=== PATIENT | female | born 1970 | race American Indian/Alaskan Native ===

== ENCOUNTER 2018-02-04 19:20 | Emergency (ER) | payer SELFPAY ==
[2018-02-04 19:44] VITALS: BP 123/74; PULSE 77; RESP 18; TEMP 98.1; O2SAT 100
--- NOTE | 2018-02-04 20:07 | C.PDOC ---
History Of Present Illness 47 y/o female with no significant PMHx presents to the ED complaining of heaviness to left side of her face since yesterday. Also reports her left eye seems irritated, with increased tearing, and is difficult to close. She states her tongue feels uncoordinated and food is tasting differently on the left side of the mouth. Denies any motor deficits of upper or lower extremities, ataxia, headache, visual changes, or paresthesias. Patient states she did have a recent URI. No fever or chills. Time Seen by Provider: 02/04/18 19:58 Chief Complaint (Nursing): Weakness/Neurological Deficit History Per: Patient History/Exam Limitations: no limitations Onset/Duration Of Symptoms: Days (x2) Current Symptoms Are (Timing): Still Present Past Medical History Reviewed: Historical Data, Nursing Documentation, Vital Signs Vital Signs: Last Vital Signs Temp 98.1 F 02/04/18 19:38 Pulse 77 02/04/18 19:38 Resp 18 02/04/18 19:38 BP 123/74 02/04/18 19:38 Pulse Ox 100 02/04/18 20:21 - Medical History PMH: Asthma Denies: Chronic Kidney Disease Surgical History: No Surg Hx Family History: States: No Known Family Hx - Social History Hx Alcohol Use: Yes Hx Substance Use: No - Immunization History Hx Tetanus Toxoid Vaccination: No Hx Influenza Vaccination: No Hx Pneumococcal Vaccination: No Review Of Systems Except As Marked, All Systems Reviewed And Found Negative. Constitutional: Negative for: Fever, Chills Eyes: Positive for: Other (difficulty closing left eye). Negative for: Vision Change ENT: Positive for: Other (tongue incoordination) Neurological: Positive for: Numbness (left sided facial heaviness and eye irritation). Negative for: Weakness (of upper or lower extremities), Change in Speech, Confusion, Headache, Dizziness, Other (Ataxia) Physical Exam - Physical Exam Appears: Non-toxic, No Acute Distress Skin: Warm, Dry, No Rash Head: Atraumatic, Normacephalic, Other (Decreased nasolabial fold on the left) Eye(s): bilateral: PERRL, EOMI Ear(s): Bilateral: Normal Nose: Normal Oral Mucosa: Moist Neck: Normal ROM, Supple Chest: Symmetrical Cardiovascular: Rhythm Regular, No Murmur Respiratory: Normal Breath Sounds, No Rales, No Rhonchi, No Wheezing Gastrointestinal/Abdominal: Soft, No Tenderness, No Distention Extremity: Normal ROM, No Calf Tenderness, No Deformity, No Swelling Pulses: Left Dorsalis Pedis: Normal, Right Dorsalis Pedis: Normal Neurological/Psych: Oriented x3, Normal Speech (with no slurring), Normal Motor (Motor strength is 5/5 throughout, no pronator drift), Other (Clear 7th nerve palsy, unable to furrow left brow and tightly shut left eye) Gait: Steady ED Course And Treatment O2 Sat by Pulse Oximetry: 100 (RA) Pulse Ox Interpretation: Normal Medical Decision Making Medical Decision Making: 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 Will d/c home with prednisone and famciclovir prescriptions. Disposition - Disposition Referrals: [facility] at [facility] [Outside] Disposition: HOME/ ROUTINE Disposition Time: 20:08 Condition: GOOD Additional Instructions: Patch to left eye if irritation persists Prescriptions: Famciclovir 500 mg PO TID #30 tablet predniSONE [predniSONE Tab] 60 mg PO DAILY #30 tab Instructions: Akhtar's Palsy Forms: [employer] (Slovak), Work Excuse - Clinical Impression Clinical Impression: Akhtar's palsy - Scribe Statement The provider has reviewed the documentation as recorded by the Scribe (Beatris Gomez) Provider Attestation: All medical record entries made by the Scribe were at my direction and personally dictated by me. I have reviewed the chart and agree that the record accurately reflects my personal performance of the history, physical exam, medical decision making, and the department course for this patient. I have also personally directed, reviewed, and agree with the discharge instructions and disposition.
== END 2018-02-04 20:39 | disposition home or self-care (01) ==
LOC: C.ER 19:20
DX: G51.0 Bell's palsy (principal)

== ENCOUNTER 2018-02-27 09:25 | Observation (INO) | payer OTHER ==
[2018-02-27 09:50] VITALS: BMI 24.7
[2018-02-27 12:58] LABS: HCG,QUALITATIVE URINE NEGATIVE (NEGATIVE)
[2018-02-27 12:59] LABS: SQUAMOUS EPITHIAL 4 /hpf (0-5); URINE BILIRUBIN NEGATIVE (NEGATIVE); URINE BLOOD NEGATIVE (NEGATIVE); URINE CLARITY Hazy (Clear); URINE COLOR Yellow (YELLOW); URINE GLUCOSE (UA) NORMAL (Normal); URINE LEUKOCYTE ESTERASE NEG Leu/uL (Negative); URINE PROTEIN NEGATIVE (NEGATIVE); URINE UROBILINOGEN NORMAL mg/dL (0.2-1.0)
[2018-02-27 13:30] LABS: BARBITURATES, UR NEGATIVE (NEGATIVE); BENZODIAZEPINES, UR NEGATIVE (NEGATIVE); OPIATES, UR NEGATIVE (NEGATIVE); PHENCYCLIDINE, UR NEGATIVE (NEGATIVE)
[2018-02-27] MEDS ORDERED: Sodium Chloride 0.9% 1,000 ML IV ONE (13:53)
[2018-02-27 14:01] LABS: BASO % 0.3 % (0.0-2.0); EOS # 0.2 K/uL (0.0-0.7); EOS % 1.2 % (0.0-4.0); HEMOGLOBIN 8.4 g/dL (11.0-16.0); LYMPH # 0.7 K/uL (1.0-4.3); MEAN CELL VOLUME 58.2 fL (81.0-99.0); MEAN CORPUSCULAR HEMOGLOBIN 17.9 pg (27.0-31.0); MEAN CORPUSCULAR HGB CONC 30.8 g/dL (33.0-37.0); MEAN PLATELET VOLUME 6.5 fL (7.2-11.7); MONO # 0.6 K/uL (0.0-0.8); MONO % 4.8 % (0.0-10.0); NEUT # 11.5 K/uL (1.8-7.0); NEUT % 88.7 % (50.0-75.0); RBC 4.69 Mil/uL (3.80-5.20); RED CELL DISTRIBUTION WIDTH 27.9 % (11.5-14.5); WHITE BLOOD COUNT 12.9 K/uL (4.8-10.8)
[2018-02-27 14:07] LABS: PLATELET COUNT 1210 K/uL (130-400)
[2018-02-27 14:14] LABS: ALB/GLOB RATIO 1.1 (1.0-2.1); ALBUMIN 3.7 g/dL (3.5-5.0); ALT/SGPT 17 U/L (9-52); AST/SGOT 19 U/L (14-36); BLOOD UREA NITROGEN 14 mg/dL (7-17); CALCIUM 8.8 mg/dl (8.6-10.4); GFR AFRICAN-AMERICAN > 60; GFR NON-AFRICAN AMERICAN > 60
[2018-02-27 14:28] LABS: INR 1.4; PROTHROMBIN TIME 15.3 SECONDS (9.7-12.2)
[2018-02-27 14:44] LABS: ANISOCYTOSIS MODERATE; EOSINOPHIL 3 % (0-4); HYPOCHROMIC MODERATE; LYMPHOCYTE 5 % (20-40); MONOCYTE 4 % (0-10); NEUTROPHIL 88 % (50-75); PLATELET ESTIMATE MARKEDLY INCREASED (NORMAL); TOTAL CELLS COUNTED 100
[2018-02-27 14:46] LABS: LARGE PLATELETS PRESENT; OVALOCYTES SLIGHT
[2018-02-27 14:47] LABS: POLYCHROMIC SLIGHT
--- NOTE | 2018-02-27 15:16 | C.PDOC ---
History Of Present Illness 47 year old female presents to the ED for evaluation of generalized body pain which began at around 0200 today. Patient describes a full body pain that is primarily around her bilateral lower extremities. She tried going to work today , but was unable to because of the pain. In ED, patient was afebrile via oral temperature but showed a Tmax of 101.3 via rectal temperature. She denies chills , headache, chest pain, shortness of breath, neck pain, back pain, nausea, vomiting. Time Seen by Provider: 02/27/18 10:11 Chief Complaint (Nursing): GI Problem History Per: Patient History/Exam Limitations: no limitations Onset/Duration Of Symptoms: Hrs Current Symptoms Are (Timing): Still Present Additional History Per: Patient Past Medical History Reviewed: Historical Data, Nursing Documentation, Vital Signs Vital Signs: Last Vital Signs Temp 100 F H 02/27/18 15:26 Pulse 86 02/27/18 15:26 Resp 18 02/27/18 15:26 BP 136/75 02/27/18 15:26 Pulse Ox 100 02/27/18 16:34 - Medical History PMH: Asthma Surgical History: No Surg Hx Family History: States: Unknown Family Hx - Social History Hx Alcohol Use: Yes Hx Substance Use: No - Immunization History Hx Tetanus Toxoid Vaccination: No Hx Influenza Vaccination: No Hx Pneumococcal Vaccination: No Review Of Systems Constitutional: Positive for: Fever. Negative for: Chills Cardiovascular: Negative for: Chest Pain Respiratory: Negative for: Shortness of Breath Gastrointestinal: Negative for: Nausea, Vomiting Musculoskeletal: Positive for: Leg Pain (bilaterally ), Other (generalized full body pain ). Negative for: Neck Pain, Back Pain Neurological: Negative for: Headache Physical Exam - Physical Exam Appears: Non-toxic, No Acute Distress Skin: Normal Color, Warm, Dry, No Rash, No Other (erythema to bilateral lower extremities ) Head: Atraumatic, Normacephalic Eye(s): bilateral: Normal Inspection Ear(s): Bilateral: Normal Nose: Normal, No Discharge Oral Mucosa: Moist Throat: Normal, No Erythema, No Exudate Neck: Supple Chest: Symmetrical, No Deformity, No Tenderness Cardiovascular: Rhythm Regular, No Murmur Respiratory: Normal Breath Sounds, No Rales, No Rhonchi, No Wheezing Gastrointestinal/Abdominal: Soft, No Tenderness, No Guarding, No Rebound Extremity: Normal ROM, Tenderness (to bilateral lower extremities on palpation ) , Capillary Refill (less than 2 seconds ), No Deformity, No Swelling Pulses: Left Dorsalis Pedis: Normal, Right Dorsalis Pedis: Normal Neurological/Psych: Oriented x3, Normal Speech, Normal Cognition ED Course And Treatment - Laboratory Results Result Diagrams: 02/27/18 15:22 02/27/18 13:56 O2 Sat by Pulse Oximetry: 100 (on RA) Pulse Ox Interpretation: Normal - Other Rad CXR X-Ray: Interpreted by Me, Viewed By Me, Read By Radiologist Interpretation: HISTORY: Fever, pain. COMPARISON: No prior. FINDINGS: LUNGS : No active pulmonary disease. PLEURA: No significant pleural effusion identified, no pneumothorax apparent. CARDIOVASCULAR: Normal. OSSEOUS STRUCTURES: No significant abnormalities. VISUALIZED UPPER ABDOMEN: Normal. OTHER FINDINGS: None. IMPRESSION: No active disease. Medical Decision Making Medical Decision Making: Impression: 47 year old female with generalized body pain Plan: * bloodwork * urinalysis * CXR * Motrin PO * Tamiflu PO * Tylenol PO * IV Fluids * reassess and disposition Progress: Bloodwork, urinalysis, CXR ordered and reviewed. Motrin PO, Tamiflu PO, Tylenol PO, and IV Fluids administered. Lab results show elevated platelet count. Patient remains afebrile in the ED. Case discussed with Dr. James, who accept the patient for admission. Disposition Discussed With : Maxime James Counseled Patient/Family Regarding: Studies Performed - Disposition Disposition: HOSPITALIZED Disposition Time: 15:15 Condition: STABLE - Clinical Impression Clinical Impression: Thrombocytosis, Fever - Scribe Statement The provider has reviewed the documentation as recorded by the Scribe (Mckenna Reagan) Provider Attestation: All medical record entries made by the Scribe were at my direction and personally dictated by me. I have reviewed the chart and agree that the record accurately reflects my personal performance of the history, physical exam, medical decision making, and the department course for this patient. I have also personally directed, reviewed, and agree with the discharge instructions and disposition. Decision To Admit - Pt Status Changed To: Hospital Disposition Of: Observation - . Bed Request Type: Regular Patient Diagnosis: Thrombocytosis, Fever
[2018-02-27 15:30] LABS: EOS # 0.1 K/uL (0.0-0.7); EOS % 0.9 % (0.0-4.0); HEMOGLOBIN 8.1 g/dL (11.0-16.0); LYMPH % 7.7 % (20.0-40.0); MEAN CELL VOLUME 58.5 fL (81.0-99.0); MEAN CORPUSCULAR HEMOGLOBIN 17.9 pg (27.0-31.0); MEAN CORPUSCULAR HGB CONC 30.6 g/dL (33.0-37.0); MEAN PLATELET VOLUME 6.6 fL (7.2-11.7); MONO # 0.5 K/uL (0.0-0.8); MONO % 4.3 % (0.0-10.0); NEUT # 11.2 K/uL (1.8-7.0); NEUT % 87.1 % (50.0-75.0); NRBC % 0.1 % (0.0-2.0); RBC 4.53 Mil/uL (3.80-5.20); RED CELL DISTRIBUTION WIDTH 27.9 % (11.5-14.5); WHITE BLOOD COUNT 12.8 K/uL (4.8-10.8)
--- NOTE | 2018-02-27 15:55 | RAD ---
HISTORY: Fever, pain COMPARISON: No prior. FINDINGS: LUNGS: No active pulmonary disease. PLEURA: No significant pleural effusion identified, no pneumothorax apparent. CARDIOVASCULAR: Normal. OSSEOUS STRUCTURES: No significant abnormalities. VISUALIZED UPPER ABDOMEN: Normal. OTHER FINDINGS: None. IMPRESSION: No active disease.
[2018-02-27] MEDS ORDERED: Enoxaparin 80 mg Syringe SC ONE (18:00)
[2018-02-27] MEDS: Sodium Chloride 0.9% 1,000 ML IV SCH (18:56)
[2018-02-27 22:43] LABS: SQUAMOUS EPITHIAL 3 /hpf (0-5); URINE BACTERIA RARE (<OCC); URINE BILIRUBIN NEGATIVE (NEGATIVE); URINE BLOOD NEGATIVE (NEGATIVE); URINE CLARITY Clear (Clear); URINE COLOR Straw (YELLOW); URINE GLUCOSE (UA) NORMAL (Normal); URINE LEUKOCYTE ESTERASE NEG Leu/uL (Negative); URINE PROTEIN NEGATIVE (NEGATIVE); URINE UROBILINOGEN NORMAL mg/dL (0.2-1.0)
[2018-02-27 23:50] VITALS: RESP 20
[2018-02-27] MEDS: Azithromycin 500 MG in Sodium Chloride 0.9% 250 ML IVPB SCH (23:54)
[2018-02-28 07:17] LABS: HEMOGLOBIN 8.4 g/dL (11.0-16.0); MEAN CELL VOLUME 58.1 fL (81.0-99.0); MEAN CORPUSCULAR HEMOGLOBIN 18.4 pg (27.0-31.0); MEAN CORPUSCULAR HGB CONC 31.7 g/dL (33.0-37.0); MEAN PLATELET VOLUME 8.6 fL (7.2-11.7); RBC 4.55 Mil/uL (3.80-5.20); RED CELL DISTRIBUTION WIDTH 28.8 % (11.5-14.5); WHITE BLOOD COUNT 7.1 K/uL (4.8-10.8)
[2018-02-28 07:30] LABS: IRON 13 ug/dL (37-170)
[2018-02-28 07:38] LABS: % IRON SATURATION 3 (20-55); TOTAL IRON BINDING CAPACITY 433 ug/dL (250-450)
[2018-02-28 07:41] LABS: BLOOD UREA NITROGEN 7 mg/dL (7-17); CALCIUM 8.2 mg/dl (8.6-10.4); GFR AFRICAN-AMERICAN > 60; GFR NON-AFRICAN AMERICAN > 60
[2018-02-28 08:34] LABS: FOLATE 11.2 ng/mL
--- NOTE | 2018-02-28 09:04 | CP.PCM.HP ---
History of Present Illness - History of Present Illness History of Present Illness: CC: GENERALIZED WEAKNESS, DIZZINESS, DIFFICULTY WALKING, numbness in b/l LE HPI: 47 year old female well known to me with h/o uterine fibriuods, menorrhagia nd chronic anemia, not seeing any gyneacologist, otherwise she is healthy presents to the ED for evaluation of generalized body pain which began at around 0200 today. Patient describes a full body pain that is primarily around her bilateral lower extremities. She tried going to work today, but was unable to because of the pain. In ED, patient was afebrile via oral temperature but showed a Tmax of 101.3 via rectal temperature. She denies chills, headache, chest pain, shortness of breath, neck pain, back pain, nausea, vomiting. Present on Admission - Present on Admission Any Indicators Present on Admission: Yes Review of Systems - Review of Systems Systems not reviewed;Unavailable: Acuity of Condition - Constitutional Constitutional: Fatigue, Lethargy, Malaise, Weakness - EENT Eyes: absent: As Per HPI, Blind Spots, Blurred Vision, Change in Vision, Decreased Night Vision, Diplopia, Discharge, Dry Eye, Exophthalmos, Floaters, Irritation, Itchy Eyes, Loss of Peripheral Vision, Pain, Photophobia, Requires Corrective Lenses, Sees Flashes, Spots in Vision, Tunnel Vision, Other Visual Disturbances, Loss of Vision, Other Nose/Mouth/Throat: absent: As Per HPI, Epistaxis, Nasal Congestion, Nasal Discharge, Nasal Obstruction, Nasal Trauma, Nose Pain, Post Nasal Drip, Sinus Pain, Sinus Pressure, Bleeding Gums, Change in Voice, Dental Pain, Dry Mouth, Dysphagia, Halitosis, Hoarsness, Lip Swelling, Mouth Lesions, Mouth Pain, Odynophagia, Sore Throat, Throat Swelling, Tongue Swelling, Facial Pain, Neck Pain, Neck Mass, Other - Breasts Breasts: absent: As Per HPI, Change in Shape, Mass, Pain, Nipple Discharge, Nipple Inversion, Skin Changes, Swelling, Other - Cardiovascular Cardiovascular: absent: As Per HPI, Acrocyanosis, Chest Pain, Chest Pain at Rest , Chest Pain with Activity, Claudication, Diaphoresis, Dyspnea, Dyspnea on Exertion, Edema, Irregular Heart Rhythm, Pain Radiating to Arm/Neck/Jaw, Leg Edema, Leg Ulcers, Lightheadedness, Orthopnea, Palpitations, Paroxysmal Nocturnal Dyspnea, Pedal Edema, Radiating Pain, Rapid Heart Rate, Slow Heart Rate, Syncope, Other - Respiratory Respiratory: absent: As Per HPI, Cough, Dyspnea, Hemoptysis, Dyspnea on Exertion , Wheezing, Snoring, Stridor, Pain on Inspiration, Chest Congestion, Excessive Mucous Production, Change in Mucous Color, Pain with Coughing, Other - Gastrointestinal Gastrointestinal: Abdominal Pain, Bloating - Reproductive: Female Reproductive:Female: Abnormal Vaginal Bleeding - Menstruation Menstruation: Heavy Menses - Musculoskeletal Musculoskeletal: Muscle Cramps, Muscle Weakness, Numbness - Integumentary Integumentary: absent: As Per HPI, Acne, Alopecia, Bleeding Lesions, Change in Hair, Change in Nails, Change in Pigmentation, Changing Lesions, Dry Skin, Erythema, Furuncle, Hirsutism, Lesions, New Lesions, Non-Healing Lesions, Photosensitivity, Pruritus, Rash, Skin Pain, Skin Ulcer, Sores, Striae, Swelling , Unusual Bruising, Wounds, Jaundice, Other - Neurological Neurological: absent: As Per HPI, Abnormal Gait, Abnormal Hearing, Abnormal Movements, Abnormal Speech, Behavioral Changes, Burning Sensations, Confusion, Convulsions, Disequilibrium, Dizziness, Numbness, Focal Weakness, Frequent Falls , Headaches, Lack of Coordination, Loss of Vision, Memory Loss, Paresthesias, Radicular Pain, Restless Legs, Sensory Deficit, Syncope, Tingling, Tremor, Vertigo, Weakness, Other Visual Disturbances, Other Past Patient History - Infectious Disease Hx of Infectious Diseases: None - Past Social History Smoking Status: Never Smoked - CARDIAC Hx Cardiac Disorders: No - PULMONARY Hx Asthma: Yes - NEUROLOGICAL Hx Neurological Disorder: No - HEENT Hx HEENT Problems: No - RENAL Hx Chronic Kidney Disease: No - ENDOCRINE/METABOLIC Hx Endocrine Disorders: No - HEMATOLOGICAL/ONCOLOGICAL Hx Blood Disorders: No - INTEGUMENTARY Hx Dermatological Problems: No - MUSCULOSKELETAL/RHEUMATOLOGICAL Hx Musculoskeletal Disorders: No - GASTROINTESTINAL Hx Gastrointestinal Disorders: No - GENITOURINARY/GYNECOLOGICAL Hx Genitourinary Disorders: No - PSYCHIATRIC Hx Substance Use: No - SURGICAL HISTORY Hx Surgeries: No - ANESTHESIA Hx Anesthesia: No Meds Allergies/Adverse Reactions: Allergies Allergy/AdvReac Type Severity Reaction Status Date / Time No Known Allergies Allergy Verified 02/27/18 10:21 Physical Exam - Constitutional Appears: No Acute Distress - Head Exam Head Exam: ATRAUMATIC, NORMAL INSPECTION, NORMOCEPHALIC - Eye Exam Eye Exam: EOMI, Normal appearance, PERRL Pupil Exam: NORMAL ACCOMODATION, PERRL - Respiratory Exam Respiratory Exam: Clear to Auscultation Bilateral, NORMAL BREATHING PATTERN - Cardiovascular Exam Cardiovascular Exam: REGULAR RHYTHM - GI/Abdominal Exam GI & Abdominal Exam: Normal Bowel Sounds, Soft. absent: Tenderness - Neurological Exam Neurological exam: Alert, CN II-XII Intact, Normal Gait, Oriented x3, Reflexes Normal - Psychiatric Exam Psychiatric exam: Normal Affect, Normal Mood - Skin Skin Exam: Pallor Results - Vital Signs Recent Vital Signs: Last Vital Signs Temp 98.4 F 02/28/18 04:20 Pulse 98 H 02/27/18 23:46 Resp 20 02/27/18 23:46 BP 106/67 02/27/18 23:46 Pulse Ox 97 02/28/18 00:16 - Labs Result Diagrams: 02/28/18 07:08 02/28/18 07:08 Labs: Laboratory Results - last 24 hr 02/27/18 02/27/18 02/27/18 09:52 11:06 12:51 WBC RBC Hgb Hct MCV MCH MCHC RDW Plt Count MPV Neut % (Auto) Lymph % (Auto) [place] % (Auto) Eos % (Auto) Baso % (Auto) Neut # (Auto) Lymph # (Auto) [place] # (Auto) Eos # (Auto) Baso # (Auto) Neutrophils % (Manual) Lymphocytes % (Manual) Monocytes % (Manual) Eosinophils % (Manual) Platelet Estimate Large Platelets Polychromasia Hypochromasia (manual) Anisocytosis (manual) Ovalocytes PT INR APTT Sodium Potassium Chloride Carbon Dioxide Anion Gap BUN Creatinine Est GFR ( Amer) Est GFR (Non-Af Amer) POC Glucose (mg/dL) 88 Random Glucose Calcium Iron TIBC % Saturation Total Bilirubin AST ALT Alkaline Phosphatase Total Protein Albumin Globulin Albumin/Globulin Ratio Vitamin B12 Folate Urine Color Yellow Urine Clarity Hazy Urine pH 6.0 Ur Specific [place] 1.016 Urine Protein Negative Urine Glucose (UA) Normal Urine Ketones Negative Urine Blood Negative Urine Nitrate Negative Urine Bilirubin Negative Urine Urobilinogen Normal Ur Leukocyte Esterase Neg Urine WBC (Auto) 1 Urine RBC (Auto) 1 Ur Squamous Epith Cells 4 Urine Bacteria Urine HCG, Qual Negative Urine Opiates Screen Urine Methadone Screen Ur Barbiturates Screen Ur Phencyclidine Scrn Ur Amphetamines Screen U Benzodiazepines Scrn U Oth Cocaine Metabols U Cannabinoids Screen HIV 1&2 Antibody Screen Influenza Typ A,B (EIA) Negative for flu a/b 02/27/18 02/27/18 02/27/18 12:51 13:56 13:56 WBC 12.9 H RBC 4.69 Hgb 8.4 L Hct 27.3 L MCV 58.2 L MCH 17.9 L MCHC 30.8 L RDW 27.9 H Plt Count 1210 H* MPV 6.5 L Neut % (Auto) 88.7 H Lymph % (Auto) 5.0 L [place] % (Auto) 4.8 Eos % (Auto) 1.2 Baso % (Auto) 0.3 Neut # (Auto) 11.5 H Lymph # (Auto) 0.7 L [place] # (Auto) 0.6 Eos # (Auto) 0.2 Baso # (Auto) 0.0 Neutrophils % (Manual) 88 H Lymphocytes % (Manual) 5 L Monocytes % (Manual) 4 Eosinophils % (Manual) 3 Platelet Estimate Markedly increased H Large Platelets Present Polychromasia Slight Hypochromasia (manual) Moderate Anisocytosis (manual) Moderate Ovalocytes Slight PT INR APTT Sodium 136 Potassium 4.4 Chloride 98 Carbon Dioxide 27 Anion Gap 15 BUN 14 Creatinine 0.7 Est GFR ( Amer) > 60 Est GFR (Non-Af Amer) > 60 POC Glucose (mg/dL) Random Glucose 90 Calcium 8.8 Iron TIBC % Saturation Total Bilirubin 1.1 AST 19 ALT 17 Alkaline Phosphatase 53 Total Protein 7.0 Albumin 3.7 Globulin 3.3 Albumin/Globulin Ratio 1.1 Vitamin B12 Folate Urine Color Urine Clarity Urine pH Ur Specific [place] Urine Protein Urine Glucose (UA) Urine Ketones Urine Blood Urine Nitrate Urine Bilirubin Urine Urobilinogen Ur Leukocyte Esterase Urine WBC (Auto) Urine RBC (Auto) Ur Squamous Epith Cells Urine Bacteria Urine HCG, Qual Urine Opiates Screen Negative Urine Methadone Screen Negative Ur Barbiturates Screen Negative Ur Phencyclidine Scrn Negative Ur Amphetamines Screen Negative U Benzodiazepines Scrn Negative U Oth Cocaine Metabols Negative U Cannabinoids Screen Negative HIV 1&2 Antibody Screen Influenza Typ A,B (EIA) 02/27/18 02/27/18 02/27/18 14:17 15:22 22:35 WBC 12.8 H RBC 4.53 Hgb 8.1 L Hct 26.5 L MCV 58.5 L MCH 17.9 L MCHC 30.6 L RDW 27.9 H Plt Count 1135 H* MPV 6.6 L Neut % (Auto) 87.1 H Lymph % (Auto) 7.7 L [place] % (Auto) 4.3 Eos % (Auto) 0.9 Baso % (Auto) 0.0 Neut # (Auto) 11.2 H Lymph # (Auto) 1.0 [place] # (Auto) 0.5 Eos # (Auto) 0.1 Baso # (Auto) 0.0 Neutrophils % (Manual) Lymphocytes % (Manual) Monocytes % (Manual) Eosinophils % (Manual) Platelet Estimate Large Platelets Polychromasia Hypochromasia (manual) Anisocytosis (manual) Ovalocytes PT 15.3 H INR 1.4 APTT 28 Sodium Potassium Chloride Carbon Dioxide Anion Gap BUN Creatinine Est GFR ( Amer) Est GFR (Non-Af Amer) POC Glucose (mg/dL) Random Glucose Calcium Iron TIBC % Saturation Total Bilirubin AST ALT Alkaline Phosphatase Total Protein Albumin Globulin Albumin/Globulin Ratio Vitamin B12 Folate Urine Color Straw Urine Clarity Clear Urine pH 6.0 Ur Specific [place] 1.004 Urine Protein Negative Urine Glucose (UA) Normal Urine Ketones Negative Urine Blood Negative Urine Nitrate Negative Urine Bilirubin Negative Urine Urobilinogen Normal Ur Leukocyte Esterase Neg Urine WBC (Auto) < 1 Urine RBC (Auto) Ur Squamous Epith Cells 3 Urine Bacteria Rare Urine HCG, Qual Urine Opiates Screen Urine Methadone Screen Ur Barbiturates Screen Ur Phencyclidine Scrn Ur Amphetamines Screen U Benzodiazepines Scrn U Oth Cocaine Metabols U Cannabinoids Screen HIV 1&2 Antibody Screen Influenza Typ A,B (EIA) 02/28/18 02/28/18 02/28/18 07:08 07:08 07:08 WBC RBC Hgb Hct MCV MCH MCHC RDW Plt Count MPV Neut % (Auto) Lymph % (Auto) [place] % (Auto) Eos % (Auto) Baso % (Auto) Neut # (Auto) Lymph # (Auto) [place] # (Auto) Eos # (Auto) Baso # (Auto) Neutrophils % (Manual) Lymphocytes % (Manual) Monocytes % (Manual) Eosinophils % (Manual) Platelet Estimate Large Platelets Polychromasia Hypochromasia (manual) Anisocytosis (manual) Ovalocytes PT INR APTT Sodium Potassium Chloride Carbon Dioxide Anion Gap BUN Creatinine Est GFR ( Amer) Est GFR (Non-Af Amer) POC Glucose (mg/dL) Random Glucose Calcium Iron 13 L TIBC 433 % Saturation 3 L Total Bilirubin AST ALT Alkaline Phosphatase Total Protein Albumin Globulin Albumin/Globulin Ratio Vitamin B12 462 Folate 11.2 Urine Color Urine Clarity Urine pH Ur Specific [place] Urine Protein Urine Glucose (UA) Urine Ketones Urine Blood Urine Nitrate Urine Bilirubin Urine Urobilinogen Ur Leukocyte Esterase Urine WBC (Auto) Urine RBC (Auto) Ur Squamous Epith Cells Urine Bacteria Urine HCG, Qual Urine Opiates Screen Urine Methadone Screen Ur Barbiturates Screen Ur Phencyclidine Scrn Ur Amphetamines Screen U Benzodiazepines Scrn U Oth Cocaine Metabols U Cannabinoids Screen HIV 1&2 Antibody Screen Negative Influenza Typ A,B (EIA) 02/28/18 02/28/18 07:08 07:08 WBC 7.1 RBC 4.55 Hgb 8.4 L Hct 26.4 L MCV 58.1 L MCH 18.4 L MCHC 31.7 L RDW 28.8 H Plt Count 1164 H* MPV 8.6 Neut % (Auto) Lymph % (Auto) [place] % (Auto) Eos % (Auto) Baso % (Auto) Neut # (Auto) Lymph # (Auto) [place] # (Auto) Eos # (Auto) Baso # (Auto) Neutrophils % (Manual) Lymphocytes % (Manual) Monocytes % (Manual) Eosinophils % (Manual) Platelet Estimate Large Platelets Polychromasia Hypochromasia (manual) Anisocytosis (manual) Ovalocytes PT INR APTT Sodium 140 Potassium 3.7 Chloride 105 Carbon Dioxide 26 Anion Gap 13 BUN 7 Creatinine 0.7 Est GFR ( Amer) > 60 Est GFR (Non-Af Amer) > 60 POC Glucose (mg/dL) Random Glucose 104 Calcium 8.2 L Iron TIBC % Saturation Total Bilirubin AST ALT Alkaline Phosphatase Total Protein Albumin Globulin Albumin/Globulin Ratio Vitamin B12 Folate Urine Color Urine Clarity Urine pH Ur Specific [place] Urine Protein Urine Glucose (UA) Urine Ketones Urine Blood Urine Nitrate Urine Bilirubin Urine Urobilinogen Ur Leukocyte Esterase Urine WBC (Auto) Urine RBC (Auto) Ur Squamous Epith Cells Urine Bacteria Urine HCG, Qual Urine Opiates Screen Urine Methadone Screen Ur Barbiturates Screen Ur Phencyclidine Scrn Ur Amphetamines Screen U Benzodiazepines Scrn U Oth Cocaine Metabols U Cannabinoids Screen HIV 1&2 Antibody Screen Influenza Typ A,B (EIA) Assessment & Plan (1) Acute gastroenteritis Status: Acute (2) Anemia Assessment and Plan: due to UTERINE FIBROIDS AND MENORRHAGIA PLAN: IRON SUPPLEMENTS Status: Chronic
--- NOTE | 2018-02-28 09:05 | CP.PCM.PN ---
Subjective - Date & Time of Evaluation Date of Evaluation: 02/28/18 Time of Evaluation: 17:00 - Subjective Subjective: PT SEEN AND EXAMINED TODAY Objective - Vital Signs/Intake and Output Vital Signs (last 24 hours): Temp Pulse Resp BP Pulse Ox 98.8 F 90 20 98/65 L 96 02/28/18 09:02 02/28/18 09:02 02/28/18 09:02 02/28/18 09:02 02/28/18 09:02 - Medications Medications: Current Medications Acetaminophen (Tylenol 325mg Tab) 650 mg PO Q6 PRN PRN Reason: Pain, moderate (4-7) Last Admin: 02/27/18 23:54 Dose: 650 mg Enoxaparin Sodium (Lovenox) 40 mg SC DAILY MENDY Sodium Chloride (Sodium Chloride 0.9%) 1,000 mls @ 80 mls/hr IV .[id number] MENDY Last Admin: 02/27/18 18:56 Dose: 80 mls/hr Ceftriaxone Sodium 1 gm/ (Sodium Chloride) 100 mls @ 100 mls/hr IVPB DAILY MENDY PRN Reason: Protocol Last Admin: 02/27/18 18:55 Dose: 100 mls/hr Azithromycin 500 mg/ Sodium (Chloride) 250 mls @ 250 mls/hr IVPB Q24H MENDY PRN Reason: Protocol Last Admin: 02/27/18 23:54 Dose: 250 mls/hr - Labs Labs: 02/28/18 07:08 02/28/18 07:08 PT 15.3 SECONDS (9.7-12.2) H 02/27/18 14:17 INR 1.4 02/27/18 14:17 APTT 28 SECONDS (21-34) 02/27/18 14:17
--- NOTE | 2018-02-28 09:09 | CP.PCM.CON ---
<Cristina Tsai - Last Filed: 02/28/18 22:01> History of Present Illness - History of Present Illness History of Present Illness: Hematology-Oncology Progress Note- Dr. Ramirez's service Reason for consult: thrombocytosis HPI: 47 year old female with past medical history significant for anemia, recent diagnosis of griffith's palsy and asthma initially presented one day earlier with complaints of bilateral left lower extremity numbness (located around the thighs) which began around 6am. Patient was concerned at the time, but still able to go about her daily duties and thus went to work. While at work, she states that her symptoms worsened. She stated that her co-workers remarked on her skin pallor. She called her daughter who brought her to the hospital to be evaluated. She admits to heavy periods monthly. She states that she has had heavy periods for as long as she can remember requiring the use of overnight pads. Patient states that her last period lasted three weeks in January. She states that she should have had her period this month but has not. She suspects that she may be approaching menopause. She denies any events related to abnormal bleeding, skin discoloration or easy bruising. She states that she follows with her primary physician, Doctor James. She denies being told that she has elevated platelets in the past. She admits to nausea and lightheadedness yesterday. She denies chest pain, dyspnea or palpitations. PMHx- as stated above PSHx- denies Fam Hx- father of an OK in his 60s, paternal aunt had an OK, sister had breast cancer ; denies family history of anemia or blood related disorders Meds- Muslim and rescue inhaler, occasionally takes iron tablets every couple of months Social- admits to smoking history of several years duration. Quit ten years ago. Social alcohol use during parties. Denies illicit drug use . 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 Allergies- denies Review of Systems - Constitutional Constitutional: Headache - EENT Nose/Mouth/Throat: absent: Epistaxis - Cardiovascular Cardiovascular: absent: Chest Pain, Chest Pain with Activity, Dyspnea - Menstruation Menstruation: Menses Variable, Dysmenorrhea - Musculoskeletal Musculoskeletal: Numbness, Tingling - Integumentary Integumentary: absent: Unusual Bruising, Wounds - Neurological Neurological: absent: Weakness - Hematologic/Lymphatic Hematologic: absent: As Per HPI, Easy Bleeding, Easy Bruising Past Patient History - Infectious Disease Hx of Infectious Diseases: None - Past Social History Smoking Status: Former Smoker Alcohol: Social Drugs: Denies - CARDIAC Hx Cardiac Disorders: No - PULMONARY Hx Asthma: Yes - NEUROLOGICAL Hx Neurological Disorder: No - HEENT Hx HEENT Problems: No - RENAL Hx Chronic Kidney Disease: No - ENDOCRINE/METABOLIC Hx Endocrine Disorders: No - HEMATOLOGICAL/ONCOLOGICAL Hx Blood Disorders: No - INTEGUMENTARY Hx Dermatological Problems: No - MUSCULOSKELETAL/RHEUMATOLOGICAL Hx Musculoskeletal Disorders: No - GASTROINTESTINAL Hx Gastrointestinal Disorders: No - GENITOURINARY/GYNECOLOGICAL Hx Genitourinary Disorders: No - PSYCHIATRIC Hx Substance Use: No - SURGICAL HISTORY Hx Surgeries: No - ANESTHESIA Hx Anesthesia: No Meds Allergies/Adverse Reactions: Allergies Allergy/AdvReac Type Severity Reaction Status Date / Time No Known Allergies Allergy Verified 02/27/18 10:21 - Medications Medications: Current Medications Acetaminophen (Tylenol 325mg Tab) 650 mg PO Q6 PRN PRN Reason: Pain, moderate (4-7) Last Admin: 02/27/18 23:54 Dose: 650 mg Enoxaparin Sodium (Lovenox) 40 mg SC DAILY [facility] Sodium Chloride (Sodium Chloride 0.9%) 1,000 mls @ 80 mls/hr IV .[id number] [facility] Last Admin: 02/27/18 18:56 Dose: 80 mls/hr Ceftriaxone Sodium 1 gm/ (Sodium Chloride) 100 mls @ 100 mls/hr IVPB DAILY [facility] PRN Reason: Protocol Last Admin: 02/27/18 18:55 Dose: 100 mls/hr Azithromycin 500 mg/ Sodium (Chloride) 250 mls @ 250 mls/hr IVPB Q24H [facility] PRN Reason: Protocol Last Admin: 02/27/18 23:54 Dose: 250 mls/hr Physical Exam - Constitutional Appears: Non-toxic, No Acute Distress - Head Exam Head Exam: ATRAUMATIC, NORMAL INSPECTION, NORMOCEPHALIC - Eye Exam Eye Exam: EOMI Pupil Exam: NORMAL ACCOMODATION, PERRL - ENT Exam ENT Exam: Mucous Membranes Moist - Neck Exam Neck exam: Positive for: Full Rom - Respiratory Exam Respiratory Exam: NORMAL BREATHING PATTERN - Cardiovascular Exam Cardiovascular Exam: +S1, +S2 - GI/Abdominal Exam GI & Abdominal Exam: Normal Bowel Sounds, Soft. absent: Organomegaly (no splenomegaly appreciated) - Extremities Exam Extremities exam: Positive for: full ROM, normal capillary refill, normal inspection, pedal pulses present. Negative for: joint swelling, pedal edema, tenderness - Back Exam Back exam: FULL ROM, NORMAL INSPECTION - Neurological Exam Neurological exam: CN II-XII Intact, Oriented x3 - Expanded Neurological Exam Expanded Patient oriented to: person, place, time Cranial nerves: Facial Palsey w/Forehead Movement: Abnormal Left (slight) Cerebellar Function: Finger to Nose: Normal Upper motor neuron: Babinski Sign: Normal, Gerard Neglect: Normal Sensory exam: Lower Extremity 2 Point Discrimination: Normal, Lower Extremity Light Touch: Normal, Lower Extremity Temperature: Normal, Upper Extremity 2 Point Discrimination: Normal, Upper Extremity Light Touch: Normal, Upper Extremity Temperature: Normal Neuro motor strength exam: Left Upper Extremity: 5, Right Upper Extremity: 5, Left Lower Extremity: 5, Right Lower Extremity: 5 - Psychiatric Exam Psychiatric exam: Normal Affect, Normal Mood - Skin Skin Exam: Dry, Intact, Normal Color, Warm Results - Vital Signs Recent Vital Signs: Last Vital Signs Temp 98.8 F 02/28/18 09:02 Pulse 90 02/28/18 09:02 Resp 20 02/28/18 09:02 BP 98/65 L 02/28/18 09:02 Pulse Ox 96 02/28/18 09:02 - Labs Result Diagrams: 02/28/18 07:08 02/28/18 07:08 Labs: Laboratory Results - last 24 hr 02/27/18 02/27/18 02/27/18 09:52 11:06 12:51 WBC RBC Hgb Hct MCV MCH MCHC RDW Plt Count MPV Neut % (Auto) Lymph % (Auto) [place] % (Auto) Eos % (Auto) Baso % (Auto) Neut # (Auto) Lymph # (Auto) [place] # (Auto) Eos # (Auto) Baso # (Auto) Neutrophils % (Manual) Lymphocytes % (Manual) Monocytes % (Manual) Eosinophils % (Manual) Platelet Estimate Large Platelets Polychromasia Hypochromasia (manual) Anisocytosis (manual) Ovalocytes PT INR APTT Sodium Potassium Chloride Carbon Dioxide Anion Gap BUN Creatinine Est GFR ( Amer) Est GFR (Non-Af Amer) POC Glucose (mg/dL) 88 Random Glucose Calcium Iron TIBC % Saturation Total Bilirubin AST ALT Alkaline Phosphatase Total Protein Albumin Globulin Albumin/Globulin Ratio Vitamin B12 Folate Urine Color Yellow Urine Clarity Hazy Urine pH 6.0 Ur Specific [place] 1.016 Urine Protein Negative Urine Glucose (UA) Normal Urine Ketones Negative Urine Blood Negative Urine Nitrate Negative Urine Bilirubin Negative Urine Urobilinogen Normal Ur Leukocyte Esterase Neg Urine WBC (Auto) 1 Urine RBC (Auto) 1 Ur Squamous Epith Cells 4 Urine Bacteria Urine HCG, Qual Negative Urine Opiates Screen Urine Methadone Screen Ur Barbiturates Screen Ur Phencyclidine Scrn Ur Amphetamines Screen U Benzodiazepines Scrn U Oth Cocaine Metabols U Cannabinoids Screen HIV 1&2 Antibody Screen Influenza Typ A,B (EIA) Negative for flu a/b 02/27/18 02/27/18 02/27/18 12:51 13:56 13:56 WBC 12.9 H RBC 4.69 Hgb 8.4 L Hct 27.3 L MCV 58.2 L MCH 17.9 L MCHC 30.8 L RDW 27.9 H Plt Count 1210 H* MPV 6.5 L Neut % (Auto) 88.7 H Lymph % (Auto) 5.0 L [place] % (Auto) 4.8 Eos % (Auto) 1.2 Baso % (Auto) 0.3 Neut # (Auto) 11.5 H Lymph # (Auto) 0.7 L [place] # (Auto) 0.6 Eos # (Auto) 0.2 Baso # (Auto) 0.0 Neutrophils % (Manual) 88 H Lymphocytes % (Manual) 5 L Monocytes % (Manual) 4 Eosinophils % (Manual) 3 Platelet Estimate Markedly increased H Large Platelets Present Polychromasia Slight Hypochromasia (manual) Moderate Anisocytosis (manual) Moderate Ovalocytes Slight PT INR APTT Sodium 136 Potassium 4.4 Chloride 98 Carbon Dioxide 27 Anion Gap 15 BUN 14 Creatinine 0.7 Est GFR ( Amer) > 60 Est GFR (Non-Af Amer) > 60 POC Glucose (mg/dL) Random Glucose 90 Calcium 8.8 Iron TIBC % Saturation Total Bilirubin 1.1 AST 19 ALT 17 Alkaline Phosphatase 53 Total Protein 7.0 Albumin 3.7 Globulin 3.3 Albumin/Globulin Ratio 1.1 Vitamin B12 Folate Urine Color Urine Clarity Urine pH Ur Specific [place] Urine Protein Urine Glucose (UA) Urine Ketones Urine Blood Urine Nitrate Urine Bilirubin Urine Urobilinogen Ur Leukocyte Esterase Urine WBC (Auto) Urine RBC (Auto) Ur Squamous Epith Cells Urine Bacteria Urine HCG, Qual Urine Opiates Screen Negative Urine Methadone Screen Negative Ur Barbiturates Screen Negative Ur Phencyclidine Scrn Negative Ur Amphetamines Screen Negative U Benzodiazepines Scrn Negative U Oth Cocaine Metabols Negative U Cannabinoids Screen Negative HIV 1&2 Antibody Screen Influenza Typ A,B (EIA) 02/27/18 02/27/18 02/27/18 14:17 15:22 22:35 WBC 12.8 H RBC 4.53 Hgb 8.1 L Hct 26.5 L MCV 58.5 L MCH 17.9 L MCHC 30.6 L RDW 27.9 H Plt Count 1135 H* MPV 6.6 L Neut % (Auto) 87.1 H Lymph % (Auto) 7.7 L [place] % (Auto) 4.3 Eos % (Auto) 0.9 Baso % (Auto) 0.0 Neut # (Auto) 11.2 H Lymph # (Auto) 1.0 [place] # (Auto) 0.5 Eos # (Auto) 0.1 Baso # (Auto) 0.0 Neutrophils % (Manual) Lymphocytes % (Manual) Monocytes % (Manual) Eosinophils % (Manual) Platelet Estimate Large Platelets Polychromasia Hypochromasia (manual) Anisocytosis (manual) Ovalocytes PT 15.3 H INR 1.4 APTT 28 Sodium Potassium Chloride Carbon Dioxide Anion Gap BUN Creatinine Est GFR ( Amer) Est GFR (Non-Af Amer) POC Glucose (mg/dL) Random Glucose Calcium Iron TIBC % Saturation Total Bilirubin AST ALT Alkaline Phosphatase Total Protein Albumin Globulin Albumin/Globulin Ratio Vitamin B12 Folate Urine Color Straw Urine Clarity Clear Urine pH 6.0 Ur Specific [place] 1.004 Urine Protein Negative Urine Glucose (UA) Normal Urine Ketones Negative Urine Blood Negative Urine Nitrate Negative Urine Bilirubin Negative Urine Urobilinogen Normal Ur Leukocyte Esterase Neg Urine WBC (Auto) < 1 Urine RBC (Auto) Ur Squamous Epith Cells 3 Urine Bacteria Rare Urine HCG, Qual Urine Opiates Screen Urine Methadone Screen Ur Barbiturates Screen Ur Phencyclidine Scrn Ur Amphetamines Screen U Benzodiazepines Scrn U Oth Cocaine Metabols U Cannabinoids Screen HIV 1&2 Antibody Screen Influenza Typ A,B (EIA) 02/28/18 02/28/18 02/28/18 07:08 07:08 07:08 WBC RBC Hgb Hct MCV MCH MCHC RDW Plt Count MPV Neut % (Auto) Lymph % (Auto) [place] % (Auto) Eos % (Auto) Baso % (Auto) Neut # (Auto) Lymph # (Auto) [place] # (Auto) Eos # (Auto) Baso # (Auto) Neutrophils % (Manual) Lymphocytes % (Manual) Monocytes % (Manual) Eosinophils % (Manual) Platelet Estimate Large Platelets Polychromasia Hypochromasia (manual) Anisocytosis (manual) Ovalocytes PT INR APTT Sodium Potassium Chloride Carbon Dioxide Anion Gap BUN Creatinine Est GFR ( Amer) Est GFR (Non-Af Amer) POC Glucose (mg/dL) Random Glucose Calcium Iron 13 L TIBC 433 % Saturation 3 L Total Bilirubin AST ALT Alkaline Phosphatase Total Protein Albumin Globulin Albumin/Globulin Ratio Vitamin B12 462 Folate 11.2 Urine Color Urine Clarity Urine pH Ur Specific [place] Urine Protein Urine Glucose (UA) Urine Ketones Urine Blood Urine Nitrate Urine Bilirubin Urine Urobilinogen Ur Leukocyte Esterase Urine WBC (Auto) Urine RBC (Auto) Ur Squamous Epith Cells Urine Bacteria Urine HCG, Qual Urine Opiates Screen Urine Methadone Screen Ur Barbiturates Screen Ur Phencyclidine Scrn Ur Amphetamines Screen U Benzodiazepines Scrn U Oth Cocaine Metabols U Cannabinoids Screen HIV 1&2 Antibody Screen Negative Influenza Typ A,B (EIA) 02/28/18 02/28/18 07:08 07:08 WBC 7.1 RBC 4.55 Hgb 8.4 L Hct 26.4 L MCV 58.1 L MCH 18.4 L MCHC 31.7 L RDW 28.8 H Plt Count 1164 H* MPV 8.6 Neut % (Auto) Lymph % (Auto) [place] % (Auto) Eos % (Auto) Baso % (Auto) Neut # (Auto) Lymph # (Auto) [place] # (Auto) Eos # (Auto) Baso # (Auto) Neutrophils % (Manual) Lymphocytes % (Manual) Monocytes % (Manual) Eosinophils % (Manual) Platelet Estimate Large Platelets Polychromasia Hypochromasia (manual) Anisocytosis (manual) Ovalocytes PT INR APTT Sodium 140 Potassium 3.7 Chloride 105 Carbon Dioxide 26 Anion Gap 13 BUN 7 Creatinine 0.7 Est GFR ( Amer) > 60 Est GFR (Non-Af Amer) > 60 POC Glucose (mg/dL) Random Glucose 104 Calcium 8.2 L Iron TIBC % Saturation Total Bilirubin AST ALT Alkaline Phosphatase Total Protein Albumin Globulin Albumin/Globulin Ratio Vitamin B12 Folate Urine Color Urine Clarity Urine pH Ur Specific [place] Urine Protein Urine Glucose (UA) Urine Ketones Urine Blood Urine Nitrate Urine Bilirubin Urine Urobilinogen Ur Leukocyte Esterase Urine WBC (Auto) Urine RBC (Auto) Ur Squamous Epith Cells Urine Bacteria Urine HCG, Qual Urine Opiates Screen Urine Methadone Screen Ur Barbiturates Screen Ur Phencyclidine Scrn Ur Amphetamines Screen U Benzodiazepines Scrn U Oth Cocaine Metabols U Cannabinoids Screen HIV 1&2 Antibody Screen Influenza Typ A,B (EIA) Assessment & Plan (1) Thrombocytosis Assessment and Plan: Etiology includes primary vs secondary or reactive causes High suspicion for iron deficiency anemia Ferritin low indicative of an iron deficiency anemia F/U other specific testing: KAYLEY 2 kinase, anemia and inflammatory tests Will initiate aspirin therapy at this time as a prophylactic measure against thrombotic events F/U venous dopplers. Status: Acute (2) Anemia Assessment and Plan: Considerations for iron deficiency anemia as stated above. Will administer Iron intravenously F/U additional testing Status: Chronic (3) Prophylactic measure Assessment and Plan: ASA Continued ambulation GI prophylaxis not indicated Status: Acute <Bob Ramirez - Last Filed: 03/01/18 23:02> Results - Vital Signs Recent Vital Signs: Last Vital Signs Temp 98.3 F 03/01/18 07:54 Pulse 78 03/01/18 07:54 Resp 20 03/01/18 07:54 BP 108/64 03/01/18 07:54 Pulse Ox 97 03/01/18 14:30 - Labs Result Diagrams: 03/01/18 07:46 02/28/18 07:08 Labs: Laboratory Results - last 24 hr 03/01/18 07:46 WBC 8.9 RBC 4.46 Hgb 8.1 L Hct 26.2 L MCV 58.9 L MCH 18.3 L MCHC 31.0 L RDW 28.7 H Plt Count 1331 H* MPV 6.9 L Differential Comment Assessment & Plan - Assessment and Plan (Free Text) Assessment: Pt seen and examined, agree with Dr. Tsai's consult note. 47 year old female admitted with paresthesias, found to have iron deficiency anemia and thrombocytosis. ? reactive thrombocytosis to iron deficiency. Started on IV iron, will send JAK2 mutation analysis to evaluate for essential thrombocythemia. On empiric aspirin 81 mg daily. Thank you for this interesting consult.
[2018-02-28 09:40] LABS: BASO # 0.1 K/uL (0.0-0.2); LYMPH # 1.3 K/uL (1.0-4.3); MONO # 0.3 K/uL (0.0-0.8); NEUT # 5.5 K/uL (1.8-7.0)
[2018-02-28 10:06] LABS: FERRITIN 6.3 ng/mL
[2018-02-28] MEDS: Enoxaparin 40 mg Syringe SC SCH ×2 (10:27→11:55)
[2018-02-28] MEDS: Sodium Chloride 0.9% 1,000 ML IV SCH ×2 (10:30→19:44)
[2018-02-28] MEDS: Ferric Sodium Gluconat Complex 62.5 mg/5 ml Vial IVPB SCH (11:48)
--- NOTE | 2018-02-28 15:13 | VASCLAB ---
PROCEDURE: Lower Extremity Venous Duplex Exam. HISTORY: PAIN ON BOTH LEGS PRIORS: None. TECHNIQUE: Bilateral common femoral, femoral, popliteal and posterior tibial, peroneal and great saphenous veins were evaluated. Flow was assessed with color Doppler, compressibility, assessment of phasic flow and augmentation response. Report prepared by Serafin Blackwell, [place], RVT FINDINGS: RIGHT: 1. Common Femoral Vein: 1.1. Compressibility - Fully compressible: Thrombus - None : Flow - Phasic: Augmentation -Normal: Reflux - None. 2. Femoral Vein: 2.1. Compressibility - Fully compressible: Thrombus - None : Flow - Phasic: Augmentation -Normal: Reflux - None. 3. Popliteal Vein: 3.1. Compressibility - Fully compressible: Thrombus - None : Flow - Phasic: Augmentation -Normal: Reflux - None. 4. Posterior Tibial Vein: 4.1. Compressibility - Fully compressible: Thrombus - None: Flow - Phasic: Augmentation -Normal: Reflux - None. 5. Peroneal Vein: 5.1. Compressibility - Fully compressible: Thrombus - None: Flow - Phasic: Augmentation -Normal: Reflux - None. 6. Great Saphenous Vein: 6.1. Compressibility - Fully compressible: Thrombus - None: Flow - Phasic: Augmentation - Normal: Reflux - None. LEFT: 1. Common Femoral Vein: 1.1. Compressibility - Fully compressible: Thrombus - None: Flow - Phasic: Augmentation -Normal: Reflux - None. 2. Femoral Vein: 2.1. Compressibility - Fully compressible: Thrombus - None: Flow - Phasic: Augmentation -Normal: Reflux - None. 3. Popliteal Vein: 3.1. Compressibility - Fully compressible: Thrombus - None : Flow - Phasic: Augmentation -Normal: Reflux - None. 4. Posterior Tibial Vein: 4.1. Compressibility - Fully compressible: Thrombus - None: Flow - Phasic: Augmentation -Normal: Reflux - None. 5. Peroneal Vein: 5.1. Compressibility - Fully compressible: Thrombus - None: Flow - Phasic: Augmentation -Normal: Reflux - None. 6. Great Saphenous Vein: 6.1. Compressibility - Fully compressible: Thrombus - None: Flow - Phasic: Augmentation - Normal: Reflux - None. OTHER FINDINGS: Right: None significant. Left: None significant. IMPRESSION: Right: No evidence of deep or superficial vein thrombosis of the right lower extremity. Normal valve function noted of the right side. Left: No evidence of deep or superficial vein thrombosis of the left lower extremity. Normal valve function noted of the left side.
[2018-02-28] MEDS: Docusate-Senna 50 mg-8.6 mg Tab PO SCH (19:13)
[2018-03-01] MEDS: Azithromycin 500 MG in Sodium Chloride 0.9% 250 ML IVPB SCH (00:30)
[2018-03-01 07:58] VITALS: BP 108/64; PULSE 78; TEMP 98.3; O2SAT 97
[2018-03-01 08:02] LABS: HEMOGLOBIN 8.1 g/dL (11.0-16.0); MEAN CELL VOLUME 58.9 fL (81.0-99.0); MEAN CORPUSCULAR HEMOGLOBIN 18.3 pg (27.0-31.0); MEAN PLATELET VOLUME 6.9 fL (7.2-11.7); RBC 4.46 Mil/uL (3.80-5.20); RED CELL DISTRIBUTION WIDTH 28.7 % (11.5-14.5); WHITE BLOOD COUNT 8.9 K/uL (4.8-10.8)
[2018-03-01] MEDS: Ferric Sodium Gluconat Complex 62.5 mg/5 ml Vial IVPB SCH (09:07)
[2018-03-01] MEDS: Docusate-Senna 50 mg-8.6 mg Tab PO SCH (09:08)
[2018-03-01] MEDS: Enoxaparin 40 mg Syringe SC SCH (09:08)
[2018-03-01] MEDS: Sodium Chloride 0.9% 1,000 ML IV SCH ×2 (09:16)
--- NOTE | 2018-03-01 16:02 | CP.PCM.PN ---
Subjective - Date & Time of Evaluation Date of Evaluation: 03/01/18 Time of Evaluation: 16:02 - Subjective Subjective: PATIENT IS ADMITTED FOR THROMBOCITOSIS AAOX3 / NO SIGN DISTRESS NOTED Objective - Vital Signs/Intake and Output Vital Signs (last 24 hours): Temp Pulse Resp BP Pulse Ox 98.3 F 78 20 108/64 97 03/01/18 07:54 03/01/18 07:54 03/01/18 07:54 03/01/18 07:54 03/01/18 14:30 Intake and Output: 03/01/18 03/01/18 06:59 18:59 Intake Total 970 Output Total 600 Balance 370 - Medications Medications: Current Medications Acetaminophen (Tylenol 325mg Tab) 650 mg PO Q6 PRN PRN Reason: Pain, moderate (4-7) Last Admin: 02/27/18 23:54 Dose: 650 mg Aspirin (Ecotrin) 81 mg PO DAILY [facility] Last Admin: 03/01/18 09:07 Dose: 81 mg Cyclobenzaprine HCl (Flexeril) 5 mg PO TID [facility] Last Admin: 03/01/18 14:50 Dose: 5 mg Enoxaparin Sodium (Lovenox) 40 mg SC DAILY [facility] Last Admin: 03/01/18 09:08 Dose: 40 mg Ferric Sodium Gluconate Complex (Ferrlecit) 125 mg IVPB DAILY [facility] Stop: 03/08/18 11:01 Last Admin: 03/01/18 09:07 Dose: 125 mg Sodium Chloride (Sodium Chloride 0.9%) 1,000 mls @ 80 mls/hr IV .[id number] [facility] Last Admin: 03/01/18 09:16 Dose: Not Given Ceftriaxone Sodium 1 gm/ (Sodium Chloride) 100 mls @ 100 mls/hr IVPB DAILY [facility] PRN Reason: Protocol Last Admin: 03/01/18 10:34 Dose: 100 mls/hr Azithromycin 500 mg/ Sodium (Chloride) 250 mls @ 250 mls/hr IVPB Q24H [facility] PRN Reason: Protocol Last Admin: 03/01/18 00:30 Dose: 250 mls/hr Pneumococcal Polyvalent Vaccine (Pneumovax 23 Vaccine) 0.5 ml IM .ONCE ONE Stop: 03/02/18 10:01 Prednisone (Prednisone Tab) 20 mg PO DAILY [facility] Last Admin: 03/01/18 09:07 Dose: 20 mg Senna/Docusate Sodium (Senokot S 50 Mg-8.6 Mg) 1 tab PO BID [facility] Last Admin: 03/01/18 09:08 Dose: 1 tab - Labs Labs: 03/01/18 07:46 02/28/18 07:08 PT 15.3 SECONDS (9.7-12.2) H 02/27/18 14:17 INR 1.4 02/27/18 14:17 APTT 28 SECONDS (21-34) 02/27/18 14:17 Assessment and Plan - Assessment and Plan (Free Text) Assessment: PATIENTSEEN AND EXAMINED AT TH BEDSIDE LUNG SOUND CLEAR LOWER EXT DUPPLEX IS NEG PLT IS [address] SPARKS WHO CLEAR FOR DC FOLLOW UP WITH DR SPARKS AT HIS OFFICE 1-2 WEEKS --CALL FOR APPOINTMENT CONTINUE ALL YOUR HOME MEDICATION NEW PRSCRIPTION GIVEN IRON COLACE ACTIVITY TOLERATED CALL DR SPARKS OR GO TO THE EMERGENCY ROOM IF SYMPTOMS OR WORSENING DISCUSS WITH PATIENT WHO AGREE AND VERBALIZED UNDERSTANDING
--- NOTE | 2018-03-01 23:19 | CP.PCM.DIS ---
Provider - Provider Date of Admission: 02/27/18 15:16 Attending physician: Maxime James MD Time Spent in preparation of Discharge (in minutes): 45 Diagnosis - Discharge Diagnosis (1) Acute gastroenteritis Status: Acute (2) Anemia Status: Chronic Hospital Course - Lab Results Lab Results: Micro Results 02/27/18 20:13 Blood-Venous Blood Culture - Preliminary NO GROWTH AFTER 48 HOURS 02/27/18 22:35 Urine Urine Culture - Final <10,000 CFU/ML. MULTIPLE SPECIES. PROBABLE CONTAMINATION. Most Recent Lab Values WBC 8.9 K/uL (4.8-10.8) 03/01/18 07:46 RBC 4.46 Mil/uL (3.80-5.20) 03/01/18 07:46 Hgb 8.1 g/dL (11.0-16.0) L 03/01/18 07:46 Hct 26.2 % (34.0-47.0) L 03/01/18 07:46 MCV 58.9 fL (81.0-99.0) L 03/01/18 07:46 MCH 18.3 pg (27.0-31.0) L 03/01/18 07:46 MCHC 31.0 g/dL (33.0-37.0) L 03/01/18 07:46 RDW 28.7 % (11.5-14.5) H 03/01/18 07:46 Plt Count 1331 K/uL (130-400) H* 03/01/18 07:46 MPV 6.9 fL (7.2-11.7) L 03/01/18 07:46 Neut % (Auto) 77.0 % (50.0-75.0) H 02/28/18 07:08 Lymph % (Auto) 18.0 % (20.0-40.0) L 02/28/18 07:08 [place] % (Auto) 4.0 % (0.0-10.0) 02/28/18 07:08 Eos % (Auto) 0.0 % (0.0-4.0) 02/28/18 07:08 Baso % (Auto) 1.0 % (0.0-2.0) 02/28/18 07:08 Neut # (Auto) 5.5 K/uL (1.8-7.0) 02/28/18 07:08 Lymph # (Auto) 1.3 K/uL (1.0-4.3) 02/28/18 07:08 [place] # (Auto) 0.3 K/uL (0.0-0.8) 02/28/18 07:08 Eos # (Auto) 0.0 K/uL (0.0-0.7) 02/28/18 07:08 Baso # (Auto) 0.1 K/uL (0.0-0.2) 02/28/18 07:08 Neutrophils % (Manual) 88 % (50-75) H 02/27/18 13:56 Lymphocytes % (Manual) 5 % (20-40) L 02/27/18 13:56 Monocytes % (Manual) 4 % (0-10) 02/27/18 13:56 Eosinophils % (Manual) 3 % (0-4) 02/27/18 13:56 Differential Comment 03/01/18 07:46 Platelet Estimate Markedly increased (NORMAL) H 02/27/18 13:56 Large Platelets Present 02/27/18 13:56 Polychromasia Slight 02/27/18 13:56 Hypochromasia (manual) Moderate 02/27/18 13:56 Anisocytosis (manual) Moderate 02/27/18 13:56 Ovalocytes Slight 02/27/18 13:56 Smear Path Review 02/27/18 13:56 Retic Count 2.1 % (0.5-1.5) H 02/28/18 07:08 PT 15.3 SECONDS (9.7-12.2) H 02/27/18 14:17 INR 1.4 02/27/18 14:17 APTT 28 SECONDS (21-34) 02/27/18 14:17 Sodium 140 mmol/L (132-148) 02/28/18 07:08 Potassium 3.7 mmol/L (3.6-5.2) 02/28/18 07:08 Chloride 105 mmol/L (98-107) 02/28/18 07:08 Carbon Dioxide 26 mmol/L (22-30) 02/28/18 07:08 Anion Gap 13 (10-20) 02/28/18 07:08 BUN 7 mg/dL (7-17) 02/28/18 07:08 Creatinine 0.7 mg/dL (0.7-1.2) 02/28/18 07:08 Est GFR ( Amer) > 60 02/28/18 07:08 Est GFR (Non-Af Amer) > 60 02/28/18 07:08 POC Glucose (mg/dL) 88 mg/dL (65-110) 02/27/18 09:52 Random Glucose 104 mg/dL (65-105) 02/28/18 07:08 Calcium 8.2 mg/dl (8.6-10.4) L 02/28/18 07:08 Iron 13 ug/dL (37-170) L 02/28/18 07:08 TIBC 433 ug/dL (250-450) 02/28/18 07:08 % Saturation 3 (20-55) L 02/28/18 07:08 Ferritin 6.3 ng/mL 02/28/18 07:08 Total Bilirubin 1.1 mg/dL (0.2-1.3) 02/27/18 13:56 AST 19 U/L (14-36) 02/27/18 13:56 ALT 17 U/L (9-52) 02/27/18 13:56 Alkaline Phosphatase 53 U/L (38-126) 02/27/18 13:56 C-Reactive Protein 15.80 mg/L (0.0-9.9) H 02/28/18 07:08 Total Protein 7.0 g/dL (6.3-8.3) 02/27/18 13:56 Albumin 3.7 g/dL (3.5-5.0) 02/27/18 13:56 Globulin 3.3 gm/dL (2.2-3.9) 02/27/18 13:56 Albumin/Globulin Ratio 1.1 (1.0-2.1) 02/27/18 13:56 Vitamin B12 462 pg/mL (239-931) 02/28/18 07:08 Folate 11.2 ng/mL 02/28/18 07:08 Urine Color Straw (YELLOW) 02/27/18 22:35 Urine Clarity Clear (Clear) 02/27/18 22:35 Urine pH 6.0 (5.0-8.0) 02/27/18 22:35 Ur Specific Coy 1.004 (1.003-1.030) 02/27/18 22:35 Urine Protein Negative mg/dL (NEGATIVE) 02/27/18 22:35 Urine Glucose (UA) Normal mg/dL (Normal) 02/27/18 22:35 Urine Ketones Negative mg/dL (NEGATIVE) 02/27/18 22:35 Urine Blood Negative (NEGATIVE) 02/27/18 22:35 Urine Nitrate Negative (NEGATIVE) 02/27/18 22:35 Urine Bilirubin Negative (NEGATIVE) 02/27/18 22:35 Urine Urobilinogen Normal mg/dL (0.2-1.0) 02/27/18 22:35 Ur Leukocyte Esterase Neg Saleem/uL (Negative) 02/27/18 22:35 Urine WBC (Auto) < 1 /hpf (0-5) 02/27/18 22:35 Urine RBC (Auto) 1 /hpf (0-3) 02/27/18 12:51 Ur Squamous Epith Cells 3 /hpf (0-5) 02/27/18 22:35 Urine Bacteria Rare (<OCC) 02/27/18 22:35 Urine HCG, Qual Negative (NEGATIVE) 02/27/18 12:51 Urine Opiates Screen Negative (NEGATIVE) 02/27/18 12:51 Urine Methadone Screen Negative (NEGATIVE) 02/27/18 12:51 Ur Barbiturates Screen Negative (NEGATIVE) 02/27/18 12:51 Ur Phencyclidine Scrn Negative (NEGATIVE) 02/27/18 12:51 Ur Amphetamines Screen Negative (NEGATIVE) 02/27/18 12:51 U Benzodiazepines Scrn Negative (NEGATIVE) 02/27/18 12:51 U Oth Cocaine Metabols Negative (NEGATIVE) 02/27/18 12:51 U Cannabinoids Screen Negative (NEGATIVE) 02/27/18 12:51 HIV 1&2 Antibody Screen Negative (NEGATIVE) 02/28/18 07:08 Influenza Typ A,B (EIA) Negative for flu a/b (NEGATIVE) 02/27/18 11:06 Discharge Exam - Head Exam Head Exam: ATRAUMATIC, NORMAL INSPECTION, NORMOCEPHALIC Discharge Plan - Discharge Medications Prescriptions: Docusate [Colace] 100 mg PO BID 60 Days cap Ferrous Gluconate [Fergon] 324 mg PO BID 60 Days tab - Follow Up Plan Condition: STABLE Disposition: HOME/ ROUTINE Instructions: Anemia Caused by Low Iron, Thrombocytosis, Docusate, Ferrous Gluconate Additional Instructions: FOLLOW UP WITH DR JAMES AT HIS OFFICE 1-2 WEEKS --CALL FOR APPOINTMENT CONTINUE ALL YOUR HOME MEDICATION NEW PRSCRIPTION GIVEN IRON COLACE ACTIVITY TOLERATED CALL DR JAMES OR GO TO THE EMERGENCY ROOM IF SYMPTOMS OR WORSENING Referrals: Maxime James MD [Staff Provider] -
[2018-03-02] MEDS ORDERED: Pneumococcal 23-Valent Vaccine IM ONE (10:00)
== END 2018-03-01 16:20 | disposition home or self-care (01) ==
LOC: C.ER 09:25 → C.9E 15:16 → C.3T 15:16
PROVIDERS: ADMIT Internal Medicine; ATTEND Internal Medicine
DX: D50.9 Iron deficiency anemia, unspecified (principal); D47.3 Essential (hemorrhagic) thrombocythemia; D25.9 Leiomyoma of uterus, unspecified; K52.9 Noninfective gastroenteritis and colitis, unspecified; F17.210 Nicotine dependence, cigarettes, uncomplicated; J45.909 Unspecified asthma, uncomplicated; G51.0 Bell's palsy; N92.0 Excessive and frequent menstruation with regular cycle; Z80.3 Family history of malignant neoplasm of breast
CPT/HCPCS: 36415; 71045; 80048; 80053; 80324; 80345; 80346; 80349; 80353; 80358; 80361; 81001; 81270; 82607; 82728; 82746; 82948; 83520; 83540; 83550; 83992; 84703; 85025; 85027; 85044; 85610; 85730; 86038; 86140; 86703; 87040; 87086; 87804; 93970; 96361; 96365; 96366; 96367; 96372; 99285; G0378; J0456; J0696; J1650; J2916; J7040; J7050

== ENCOUNTER 2018-11-14 22:35 | Emergency (ER) | payer OTHER ==
[2018-11-14 22:35] VITALS: BMI 24.7
[2018-11-14 22:45] VITALS: BP 136/93; PULSE 112; RESP 20; TEMP 98.5; O2SAT 96
--- NOTE | 2018-11-14 23:38 | C.PDOC ---
History Of Present Illness 48 year old female presents to the ED c/o left upper dental pain that is radiating to her left ear and left sided face. Patient denies fever, chills, headache, injury, fall, trauma, nausea, vomit. Time Seen by Provider: 11/14/18 22:58 Chief Complaint (Nursing): Dental Pain History Per: Patient History/Exam Limitations: no limitations Onset/Duration Of Symptoms: Days Current Symptoms Are (Timing): Still Present Quality: Positive for: "Pain" Recent travel outside of the [place]: No Additional History Per: Patient Past Medical History Reviewed: Historical Data, Nursing Documentation, Vital Signs Vital Signs: Last Vital Signs Temp 98.5 F 11/14/18 22:42 Pulse 112 H 11/14/18 22:42 Resp 20 11/14/18 22:42 BP 136/93 H 11/14/18 22:42 Pulse Ox 96 11/14/18 22:42 - Medical History PMH: Asthma Denies: Chronic Kidney Disease Surgical History: No Surg Hx Family History: States: Unknown Family Hx - Social History Hx Alcohol Use: Yes Hx Substance Use: No - Immunization History Hx Tetanus Toxoid Vaccination: No Hx Influenza Vaccination: No Hx Pneumococcal Vaccination: No Review Of Systems Constitutional: Negative for: Fever, Chills ENT: Positive for: Mouth Pain. Negative for: Throat Pain Respiratory: Negative for: Cough, Shortness of Breath Gastrointestinal: Negative for: Nausea, Vomiting Skin: Negative for: Rash Neurological: Negative for: Weakness, Numbness, Headache Physical Exam - Physical Exam Appears: Non-toxic, No Acute Distress Skin: Normal Color, Warm, Dry Head: Atraumatic, Normacephalic, No Swelling (left facial) Eye(s): bilateral: Normal Inspection Ear(s): Bilateral: Normal Oral Mucosa: Moist Lips: No Laceration Teeth: Other (multiple teeth with filling) Gingiva: Erythema (left upper gum), Tender (left upper ), No Bleeding, No Abscess Throat: Normal, No Erythema, No Exudate Neck: Normal ROM, Supple Chest: Symmetrical Cardiovascular: Rhythm Regular Respiratory: Normal Breath Sounds, No Rales, No Rhonchi, No Wheezing Extremity: Normal ROM Neurological/Psych: Oriented x3, Normal Speech, Normal Cognition Gait: Steady ED Course And Treatment O2 Sat by Pulse Oximetry: 96 (ON RA) Pulse Ox Interpretation: Normal Progress Note: Plan: - Motrin 800 mg PO. - Penicillin 500 mg PO. Patient reports improvement after pain medications, patient was advised to continue taking NSAIDs at home for pain relief. Patient was advised to follow up with Dentist for further follow up. Disposition Counseled Patient/Family Regarding: Diagnosis, Need For Followup - Disposition Referrals: 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 - Scribe Statement The provider has reviewed the documentation as recorded by the Scribe Isai Curtis All medical record entries made by the Scribe were at my direction and personally dictated by me. I have reviewed the chart and agree that the record accurately reflects my personal performance of the history, physical exam, medical decision making, and the department course for this patient. I have also personally directed, reviewed, and agree with the discharge instructions and disposition.
== END 2018-11-14 23:44 | disposition home or self-care (01) ==
LOC: C.ER 22:35
DX: K02.9 Dental caries, unspecified (principal)